=== PATIENT | male | born 1985 | race Caucasian/White ===

== ENCOUNTER 2022-12-02 17:43 | Inpatient (IN) | payer MEDICAID ==
[~2022-12-02] VITALS: Ht 172.7 cm; Wt 77.1 kg
[~2022-12-02 17:43] MED LIST: ACET-2634 PO; IBUP-1969 PO
[2022-12-02 17:50] VITALS: BP_SYST 132; PULSE 108; RESP 18; TEMP 103; O2SAT 94
[2022-12-02 19:02] LABS: CALCIUM 8.3 mg/dL (8.4-11.0); CREATININE 0.9 mg/dL (0.55-1.30); POTASSIUM 3.9 mmol/L (3.5-5.1)
[2022-12-02 19:04] LABS: BASOPHILS # (AUTO) 0.1 K/uL (0.0-0.2); BASOPHILS % (AUTO) 1.3 % (0.0-2.0); HEMATOCRIT 47.7 % (36-54); HEMOGLOBIN 15.5 g/dL (14.0-18.0); LYMPHOCYTES # (AUTO) 1.9 K/uL (1.0-5.5); LYMPHOCYTES % (AUTO) 17.6 % (20.5-51.5); MEAN CORPUSCULAR HEMOGLOBIN 30 pg (27-31); MEAN CORPUSCULAR HGB CONC 33 % (32-36); MEAN CORPUSCULAR VOLUME 92 fL (79.0-98.0); MONOCYTES # (AUTO) 0.5 K/uL (0.0-1.0); MONOCYTES % (AUTO) 4.3 % (1.7-9.3); NEUTROPHILS # (AUTO) 8.4 K/uL (1.8-7.7); NEUTROPHILS % (AUTO) 76.8 % (40.0-70.0); PLATELET COUNT (AUTO) 334 K/uL (130-430); RED BLOOD CELL COUNT(AUTO) 5.18 MIL/uL (4.2-6.2); RED CELL DISTRIBUTION WIDTH 14.3 % (9.0-15.0); WHITE BLOOD COUNT (AUTO) 10.9 K/uL (4.8-10.8)
[2022-12-02] MEDS ORDERED: PIPERACILLIN/TAZO 4.5GM/DEX-IS 100 ML IV SCH (19:30)
[2022-12-02] MEDS ORDERED: D5/0.45 NS 500 ML IV ONE (19:30)
[2022-12-02 19:35] LABS: ALBUMIN 2.8 g/dL (3.4-4.8); TOTAL BILIRUBIN 0.4 mg/dL (0.0-1.0); TOTAL PROTEIN, SERUM 7.4 g/dL (6.4-8.3)
[2022-12-02] MEDS ORDERED: IBUPROFEN 800 MG TABLET PO ONE (19:45)
[2022-12-02 20:34] LABS: BILIRUBIN,URINE NEGATIVE (NEGATIVE); BLOOD, URINE 1+ (NEGATIVE); CLARITY/URINE Clear (CLEAR); COLOR,URINE YELLOW (YELLOW); GLUCOSE,URINE NEGATIVE (NEGATIVE); KETONES,URINE NEGATIVE (NEGATIVE); LEUKOCYTE ESTERASE ,URINE NEGATIVE (NEGATIVE); NITRITE, URINE NEGATIVE (NEGATIVE); PH,URINE 5.5 (5.0-8.0); PROTEIN URINE 1+ (NEGATIVE); UROBILINOGEN,URINE 0.2 (0.2-1.0)
[2022-12-02 21:07] LABS: BACTERIA,URINE FEW /HPF (None Seen); MUCUS,URINE 2+ /LPF (None Seen); RBC,URINE 0-3 /HPF (0-3); WBC,URINE 0-3 /HPF (0-3)
[2022-12-02 21:50] LABS: INFLUENZA TYPE A negative (NEGATIVE); INFLUENZA TYPE B NEGATIVE (NEGATIVE)
[2022-12-02 22:34] VITALS: BP_SYST 119; PULSE 65; RESP 18; TEMP 97.2
[2022-12-02 22:45] VITALS: O2SAT 95
[2022-12-03 00:34] VITALS: BP_SYST 119; PULSE 76; RESP 18; TEMP 97.6; O2SAT 96
[2022-12-03] MEDS ORDERED: PIPERACILLIN/TAZOBACTAM 3.375 GM/VIAL (ZOSYN) IV ONE (00:54)
[2022-12-03] MEDS: PIPERACILLIN/TAZO 3.375 GM in NS 50 ML IV SCH ×2 (01:05→06:27)
[2022-12-03 05:45] LABS: BASOPHILS % (AUTO) 0.4 % (0.0-2.0); EOSINOPHILS # (AUTO) 0.1 K/uL (0.0-0.4); EOSINOPHILS % (AUTO) 0.5 % (0.0-4.0); HEMATOCRIT 47.9 % (36-54); HEMOGLOBIN 15.7 g/dL (14.0-18.0); LYMPHOCYTES % (AUTO) 9.1 % (20.5-51.5); MEAN CORPUSCULAR HEMOGLOBIN 30 pg (27-31); MEAN CORPUSCULAR HGB CONC 33 % (32-36); MEAN CORPUSCULAR VOLUME 93 fL (79.0-98.0); MONOCYTES # (AUTO) 0.3 K/uL (0.0-1.0); MONOCYTES % (AUTO) 3.1 % (1.7-9.3); NEUTROPHILS # (AUTO) 9.5 K/uL (1.8-7.7); NEUTROPHILS % (AUTO) 86.9 % (40.0-70.0); PLATELET COUNT (AUTO) 309 K/uL (130-430); RED BLOOD CELL COUNT(AUTO) 5.17 MIL/uL (4.2-6.2); RED CELL DISTRIBUTION WIDTH 14.5 % (9.0-15.0); WHITE BLOOD COUNT (AUTO) 10.9 K/uL (4.8-10.8)
[2022-12-03 06:18] VITALS: PULSE 95; RESP 18; TEMP 103.5; O2SAT 96
[2022-12-03 06:31] LABS: ALBUMIN 2.6 g/dL (3.4-4.8); CALCIUM 8.5 mg/dL (8.4-11.0); CREATININE 0.73 mg/dL (0.55-1.30); POTASSIUM 4.2 mmol/L (3.5-5.1); TOTAL BILIRUBIN 0.5 mg/dL (0.0-1.0); TOTAL PROTEIN, SERUM 7.2 g/dL (6.4-8.3)
[2022-12-03 07:00] VITALS: BP_SYST 120; PULSE 93; RESP 18; TEMP 97.3; O2SAT 98
[2022-12-03] MEDS: ACETAMINOPHEN 325 MG TABLET ONE ×2 (07:16→14:43)
[2022-12-03] MEDS ORDERED: ACETAMINOPHEN 325 MG TABLET PO PRN (07:30)
[2022-12-03 08:00] VITALS: BP_SYST 93; PULSE 93; RESP 18; TEMP 98.6
[2022-12-03] MEDS ORDERED: PIPERACILLIN/TAZOBACTAM 3.375 GM/ D5W 50 ML IV ONE ×2 (14:15)
[2022-12-03] MEDS: ACETAMINOPHEN 325 MG TABLET PO PRN ×2 (14:44→20:27)
[2022-12-03 15:00] VITALS: BP_SYST 136; PULSE 95; RESP 20; TEMP 103.1; O2SAT 96
[2022-12-03] MEDS: HYDROcodone/ACETAMIN 5-325 MG TAB (NORCO/ VICODIN) PO PRN ×2 (15:26→21:36)
[2022-12-03] MEDS: PIPERACILLIN/TAZOBACTAM 3.375 GM/ D5W 50 ML IV SCH ×2 (17:53)
[2022-12-03 20:15] VITALS: BP_SYST 120; PULSE 79; RESP 18; TEMP 98.5; O2SAT 95
[2022-12-03] MEDS: ZOLPIDEM TARTRATE 5 MG TABLET PO PRN (21:33)
[2022-12-04] VITALS (7 sets, daily range): BP systolic 114–166; PULSE 68–95; RESP 14–20; TEMP 96.8–102.7; O2SAT 95–97
[2022-12-04] MEDS: PIPERACILLIN/TAZOBACTAM 3.375 GM/ D5W 50 ML IV SCH ×10 (00:10→23:03)
[2022-12-04] MEDS: DOXYCYCLINE HYCLATE 100 MG CAPSULE PO SCH ×2 (10:08→22:05)
[2022-12-04] MEDS: HYDROcodone/ACETAMIN 5-325 MG TAB (NORCO/ VICODIN) PO PRN ×2 (10:09→18:28)
[2022-12-04] MEDS: ACETAMINOPHEN 325 MG TABLET PO PRN (13:27)
[2022-12-04] MEDS: ZOLPIDEM TARTRATE 5 MG TABLET PO PRN (23:02)
[2022-12-05] MEDS: PIPERACILLIN/TAZOBACTAM 3.375 GM/ D5W 50 ML IV SCH ×6 (06:10→18:03)
[2022-12-05 07:15] LABS: CALCIUM 8.3 mg/dL (8.4-11.0); CREATININE 0.62 mg/dL (0.55-1.30); POTASSIUM 3.8 mmol/L (3.5-5.1)
[2022-12-05 07:17] LABS: BASOPHILS % (AUTO) 0.5 % (0.0-2.0); EOSINOPHILS # (AUTO) 0.1 K/uL (0.0-0.4); EOSINOPHILS % (AUTO) 0.8 % (0.0-4.0); HEMATOCRIT 42.3 % (36-54); HEMOGLOBIN 14.1 g/dL (14.0-18.0); LYMPHOCYTES # (AUTO) 1.6 K/uL (1.0-5.5); LYMPHOCYTES % (AUTO) 19.4 % (20.5-51.5); MEAN CORPUSCULAR HEMOGLOBIN 31 pg (27-31); MEAN CORPUSCULAR HGB CONC 33 % (32-36); MEAN CORPUSCULAR VOLUME 92 fL (79.0-98.0); MONOCYTES # (AUTO) 0.8 K/uL (0.0-1.0); MONOCYTES % (AUTO) 9.7 % (1.7-9.3); NEUTROPHILS # (AUTO) 5.8 K/uL (1.8-7.7); NEUTROPHILS % (AUTO) 69.6 % (40.0-70.0); PLATELET COUNT (AUTO) 366 K/uL (130-430); RED BLOOD CELL COUNT(AUTO) 4.59 MIL/uL (4.2-6.2); RED CELL DISTRIBUTION WIDTH 14.2 % (9.0-15.0); WHITE BLOOD COUNT (AUTO) 8.3 K/uL (4.8-10.8)
[2022-12-05] MEDS: ACETAMINOPHEN 325 MG TABLET PO PRN (08:28)
[2022-12-05] MEDS: DOXYCYCLINE HYCLATE 100 MG CAPSULE PO SCH ×2 (08:28→20:13)
[2022-12-05 08:30] VITALS: BP_SYST 122; PULSE 74; RESP 17; TEMP 99.8; O2SAT 93
[2022-12-05 10:06] VITALS: O2SAT 93
[2022-12-05 12:03] VITALS: BP_SYST 119; PULSE 72; RESP 18; TEMP 98.2; O2SAT 95
[2022-12-05] MEDS: HYDROcodone/ACETAMIN 5-325 MG TAB (NORCO/ VICODIN) PO PRN (12:52)
[2022-12-05 20:00] VITALS: BP_SYST 116; PULSE 69; RESP 18; TEMP 98.2; O2SAT 95
[2022-12-05] MEDS: ZOLPIDEM TARTRATE 5 MG TABLET PO PRN (22:30)
[2022-12-06 00:41] VITALS: BP_SYST 113; PULSE 68; RESP 18; TEMP 98.1; O2SAT 92
[2022-12-06] MEDS: PIPERACILLIN/TAZOBACTAM 3.375 GM/ D5W 50 ML IV SCH ×8 (01:20→18:05)
[2022-12-06 07:32] LABS: CALCIUM 8.7 mg/dL (8.4-11.0); CREATININE 0.68 mg/dL (0.55-1.30); POTASSIUM 4.3 mmol/L (3.5-5.1)
[2022-12-06 07:40] LABS: BASOPHILS # (AUTO) 0.1 K/uL (0.0-0.2); BASOPHILS % (AUTO) 0.5 % (0.0-2.0); EOSINOPHILS # (AUTO) 0.2 K/uL (0.0-0.4); EOSINOPHILS % (AUTO) 1.4 % (0.0-4.0); HEMATOCRIT 43.4 % (36-54); HEMOGLOBIN 14.5 g/dL (14.0-18.0); LYMPHOCYTES # (AUTO) 1.4 K/uL (1.0-5.5); LYMPHOCYTES % (AUTO) 13.5 % (20.5-51.5); MEAN CORPUSCULAR HEMOGLOBIN 31 pg (27-31); MEAN CORPUSCULAR HGB CONC 34 % (32-36); MEAN CORPUSCULAR VOLUME 92 fL (79.0-98.0); MONOCYTES # (AUTO) 0.7 K/uL (0.0-1.0); MONOCYTES % (AUTO) 6.7 % (1.7-9.3); NEUTROPHILS # (AUTO) 8.3 K/uL (1.8-7.7); NEUTROPHILS % (AUTO) 77.9 % (40.0-70.0); PLATELET COUNT (AUTO) 421 K/uL (130-430); RED BLOOD CELL COUNT(AUTO) 4.73 MIL/uL (4.2-6.2); RED CELL DISTRIBUTION WIDTH 14.6 % (9.0-15.0); WHITE BLOOD COUNT (AUTO) 10.6 K/uL (4.8-10.8)
[2022-12-06 08:53] VITALS: BP_SYST 119; PULSE 62; RESP 18; TEMP 97.5; O2SAT 95
[2022-12-06] MEDS: DOXYCYCLINE HYCLATE 100 MG CAPSULE PO SCH ×2 (09:02→21:32)
[2022-12-06 13:45] VITALS: BP_SYST 119; PULSE 77; RESP 16; TEMP 98.5; O2SAT 91
[2022-12-06 17:27] VITALS: BP_SYST 116; PULSE 71; RESP 15; TEMP 98.5; O2SAT 94
[2022-12-06 19:06] LABS: MYCOPLASMA PNEUMONIAE IgG 263 U/mL (0-99); MYCOPLASMA PNEUMONIAE IgM <770 U/mL (0-769)
[2022-12-06 20:06] VITALS: BP_SYST 127; PULSE 60; RESP 17; TEMP 98.1; O2SAT 93
[2022-12-06] MEDS: ZOLPIDEM TARTRATE 5 MG TABLET PO PRN (21:33)
[2022-12-07] MEDS: PIPERACILLIN/TAZOBACTAM 3.375 GM/ D5W 50 ML IV SCH ×8 (00:03→17:22)
[2022-12-07 00:34] VITALS: BP_SYST 128; PULSE 65; RESP 17; TEMP 97.3; O2SAT 96
[2022-12-07 04:44] VITALS: O2SAT 94
[2022-12-07 08:00] VITALS: BP_SYST 124; PULSE 62; RESP 18; TEMP 98.2; O2SAT 96
[2022-12-07] MEDS: DOXYCYCLINE HYCLATE 100 MG CAPSULE PO SCH ×2 (09:24→21:00)
[2022-12-07 11:52] VITALS: BP_SYST 114; PULSE 71; RESP 15; TEMP 98.2; O2SAT 96
[2022-12-07 17:22] VITALS: BP_SYST 110; PULSE 63; RESP 15; TEMP 98.6; O2SAT 93
[2022-12-07 20:00] VITALS: BP_SYST 116; PULSE 65; RESP 17; TEMP 98.4; O2SAT 96
[2022-12-08 00:40] VITALS: BP_SYST 106; PULSE 64; RESP 16; TEMP 97.7; O2SAT 95
[2022-12-08] MEDS: PIPERACILLIN/TAZOBACTAM 3.375 GM/ D5W 50 ML IV SCH ×6 (01:07→12:13)
[2022-12-08 07:17] LABS: BASOPHILS # (AUTO) 0.1 K/uL (0.0-0.2); CALCIUM 8.9 mg/dL (8.4-11.0); CREATININE 0.71 mg/dL (0.55-1.30); EOSINOPHILS # (AUTO) 0.2 K/uL (0.0-0.4); EOSINOPHILS % (AUTO) 2.8 % (0.0-4.0); HEMATOCRIT 43.9 % (36-54); HEMOGLOBIN 14.5 g/dL (14.0-18.0); LYMPHOCYTES # (AUTO) 1.5 K/uL (1.0-5.5); LYMPHOCYTES % (AUTO) 24.3 % (20.5-51.5); MEAN CORPUSCULAR HEMOGLOBIN 31 pg (27-31); MEAN CORPUSCULAR HGB CONC 33 % (32-36); MEAN CORPUSCULAR VOLUME 93 fL (79.0-98.0); MONOCYTES # (AUTO) 0.5 K/uL (0.0-1.0); MONOCYTES % (AUTO) 7.7 % (1.7-9.3); NEUTROPHILS # (AUTO) 4.1 K/uL (1.8-7.7); NEUTROPHILS % (AUTO) 64.2 % (40.0-70.0); PLATELET COUNT (AUTO) 585 K/uL (130-430); POTASSIUM 4.3 mmol/L (3.5-5.1); RED BLOOD CELL COUNT(AUTO) 4.72 MIL/uL (4.2-6.2); RED CELL DISTRIBUTION WIDTH 14.4 % (9.0-15.0); WHITE BLOOD COUNT (AUTO) 6.4 K/uL (4.8-10.8)
[2022-12-08 08:00] VITALS: BP_SYST 114; PULSE 75; RESP 14; TEMP 97.7; O2SAT 95; O2SAT 98
[2022-12-08] MEDS: DOXYCYCLINE HYCLATE 100 MG CAPSULE PO SCH (09:27)
[2022-12-08] MEDS ORDERED: AUG875 PO (11:29)
[2022-12-08] MEDS ORDERED: DOXY100T2 PO (11:29)
[2022-12-08 12:00] VITALS: BP_SYST 122; PULSE 64; RESP 14; TEMP 97.9; O2SAT 93
[2022-12-08 13:49] VITALS: BP_SYST 122; PULSE 64; RESP 14; TEMP 97.9; O2SAT 93
== END 2022-12-08 12:50 | disposition home or self-care (01) | DRG 720 ==
LOC: SED 17:43 → SMU 19:25
PROVIDERS: ADMIT Internal Medicine; ATTEND Internal Medicine
DX: A41.9 Sepsis, unspecified organism (principal); J96.91 Respiratory failure, unspecified with hypoxia; Z20.822 Contact with and (suspected) exposure to COVID-19; J18.9 Pneumonia, unspecified organism; Z86.16 Personal history of COVID-19; Z79.1 Long term (current) use of non-steroidal anti-inflammatories (NSAID); Z79.899 Other long term (current) drug therapy
CPT/HCPCS: 36415; 71045; 80048; 80053; 81000; 83605; 85025; 86738; 87040; 96360; 99285; J2543; J7060